=== PATIENT | female | born 1940 | race Caucasian/White ===

== ENCOUNTER → 2021-12-30 11:26 | Outpatient (CLI) | payer OTHER, MEDICARE, SELFPAY ==
[2021-12-30 13:56] LABS: COVID19 -Nasal RAPID Negative (Negative)
== END ==
PROVIDERS: PCP Family Medicine; Referring Provider Ophthalmology; Visit Provider Ophthalmology
DX: Z20.822 Contact with and (suspected) exposure to COVID-19 (principal)
CPT/HCPCS: 87635; C9803

== ENCOUNTER 2022-01-01 06:17 | Day surgery (SDC) | payer OTHER, MEDICARE, SELFPAY ==
--- NOTE | 2021-12-30 17:48 | PM.PREOP ---
Pre-operative Note COVID-19 COVID-19 status: Negative Criteria for continued procedure: Expected advancement of disease process, Possibility delay results in more complex future surgery or treatment, Increased loss of function and Non-surgical alternatives not available or appropriate per current SOC Interval Note History & Physical reviewed/Exam performed by Physician: Yes Changes to H&P: No H&P completed within 30 days and has changed as indicated here:: Fasting blood [id number] is 142.
--- NOTE | 2021-12-30 17:50 | P.HP_ITS ---
History of Present Illness History of Present Illness Date Patient Seen: 12/24/21 Time Patient Seen: 10:00 Date of Onset of Symptoms: 12/13/18 Chief complaint: Blepharoplasty Upper Eye/Repair Ectropian Bleph Narrative: Patient presented with increasing complaints of several years of having to lift her eyelids in order to see. She is getting and headache and brow lift and is having trouble driving due to her overhanging eyelid. She also has tearing and watering doing to the lower lid laxity. She wants functional surgery for both her upper and lower lids Patient History Comment: Patient has controlled diabetes mellitus without retinopathy chronic myeloid leukemia in remission hypertension and high cholesterol. She has had an appendectomy and a cholecystectomy. She has had bilateral cataract surgery and posterior capsulotomy is Family & Social History Family history unavailable: Yes Social History: Nonsmoker no anesthesia related events Safety & Behavioral: Does not have sleep apnea drinks a glass of wine daily no alcohol pleural no recreational drug use Tobacco & Substance use: Never smoker Comment: Takes daily generic Gleevec for her chronic myelogenous leukemia and is stable has hypertension Review of Systems Review of Systems ROS: Yes All systems reviewed with the patient and are negative except as otherwise documented Constitutional Constitutional: Reports system reviewed and no additional complaints, except as documented Eyes Eyes: Reports loss of peripheral vision Comments: Has overhanging eyelids blocking vision and loose lower lids causing exposure and irritation she is here for surgery. ENT Ears, Nose, Mouth, and Throat: Yes system reviewed and no additional complaints, except as documented Cardiovascular Comments: High blood pressure Respiratory Respiratory: Reports system reviewed and no additional complaints, except as documented Gastrointestinal Gastrointestinal: Reports system reviewed and no additional complaints, except as documented Genitourinary Genitourinary: Reports system reviewed and no additional complaints, except as documented Musculoskeletal Musculoskeletal: Reports system reviewed and no additional complaints, except as documented Integumentary/Breasts Skin/Breast: Reports system reviewed and no additional complaints, except as documented Neurologic Neurologic: Reports system reviewed and no additional complaints, except as documented Psychiatric Psychiatric: Reports system reviewed and no additional complaints, except as documented Endocrine Endocrine: Reports system reviewed and no additional complaints, except as documented Comments: Diabetic Hematologic/Lymphatic Hematologic/Lymphatic: Reports system reviewed and no additional complaints, except as documented Comments: Chronic myelogenous leukemia in remission Allergic/Immunologic Allergic/Immunologic: Reports system reviewed and no additional complaints, except as documented Exam Narrative Exam Narrative: Patient had complete examination of the eyes showing vision at without correction 2200 right eye with correction 2019 left eye is 20 30 without c orrection 2019 with she has had bilateral cataract surgeries with a posterior capsulotomy was she has no diabetic retinopathy her cup-to-disc is 0.3 in both eyes under intra-ocular pressure is normal she has brow ptosis bilaterally 3+ dermatochalasis and bilateral ectropion is her lungs are clear and her heart has a regular rhythm Const General: cooperative, healthy appearing and well developed Nutritional Appearance: average body habitus Orientation: alert, awake and oriented x3 HENMT Head: normal to inspection Ears: hearing grossly normal bilaterally Nose: external nose normal Face and sinus: normal facial exam Mouth: oral mucosae normal Teeth and gingiva: dentition normal Throat: tonsils normal Eyes Visual White: abnormal by confrontation Alignment and Position: alignment abnormal Periorbital: periorbital findings normal Eyelids: eyelid abnormality Conjunctivae: conjunctivae normal Sclera: sclerae normal Cornea: corneas normal Pupils: PERRL EOM: EOM intact bilaterally Direct ophthalmoscopy: normal light reflex, no papilledema and fundi normal bilaterally Neck Neck: normal visual inspection Thyroid: thyroid normal Carotids: normal carotid upstroke Chest Chest: normal inspection of the chest Resp Effort & Inspection: normal respiratory effort Cardio Rate: regular rate Neuro Cranial Nerves: CN's II-XI intact bilaterally, sense of smell intact, accommodation normal, EOM intact bilaterally and facial strength normal Cognition: normal cognition Speech: speech normal Gait: normal gait Motor: muscle tone normal throughout Sensory Exam: no sensory deficits noted Objective ECG Impression: Patient is a candidate for bilateral functional upper lid blepharoplasty and bilateral ectropion repair Assessment & Plan Time Spent With Patient Critical Care time: I spent a total of [] minutes of critical care time on this patient's care today; this time is exclusive of procedural time.
--- NOTE | 2021-12-30 18:07 | P.OP_ITS ---
Operative Date/Time/Diagnoses Date of procedure: 01/01/22 Time of procedure: 07:45 Pre-op diagnosis: Bilateral upper lid dermatochalasis. Bilateral lower lid ectropion Procedure & Clinicians Procedure: Preoperative diagnoses: 1. Bilateral upper lid dermatochalasis 2. Bilateral lower lid ectropion 3. Chronic myelogenous leukemia in remission 4. Hypertension 5. Diabetes without retinopathy 6. Benign growth right lower Postoperative diagnoses: 1. Bilateral upper lid dermatochalasis treated with blepharoplasty 2. Status post ectropion repair 3. Punctal malrotation with punctal stenosis. 4. Removal of papilloma right lower lid Procedure: Bilateral upper blepharoplasty for functional symptoms. Bilateral lower lid functional ectropion repair. Surgeon: Elizabeth Gomez MD Complications: none Specimen: None Blood loss: Less than 3 mL Anesthesia: Local infiltration with monitored standby. Indications: Bilateral upper lids obstructing superior vision. Preoperative external photographs taken and loss of vision to within 2 mm of marginal light reflex. Functional surgery. Bilateral lower lid laxity with exposure symptoms and malrotated puncta. Patient presents with excessive irritation and tearing from exposure due to bilateral lower lid laxity malposition the of the lacrimal puncta which were also closed. The patient has failed conservative measures including lubrication and antibiotic ointment and desires surgery to improve these symptoms. Procedure: In the preoperative holding area the amount skin and subcutaneous tissue to be removed was marked with indelible ink. The contours were carefully checked for symmetry and planned procedure discussed with the patient. The patient was taken to the operating room. IV sedation was given. Proparacaine drops were placed in both eyes for comfort. Local infiltration of anesthetic 2.5 cc into each upper lid and lateral canthus bilaterally, consisting of 1% xylocaine with epinephrine, normal saline and 1 cc hyluronidase was placed. This was then supplemented with full strength 2% xylocaine with epinephrine, 0.5% bupivacaine, and 1 cc hyalurondase. The face was prepped in an open manner. Attention was placed to the right lower lid. A papilloma in the lid margin was removed with Reed tenotomy scissors and cautery cautery. Attention was then placed to the right upper lid upper lid. Using the previous kitchen a number 15. [employer] blade was used to incise a skin muscle flap. The flap was lifted and removed. Cautery was applied as needed. Contouring of the muscle belly was also performed. Exploration of the nasal and preoperneurotic fat pads were performed removal and contouring with hemostat and scissors as well as cautery were performed. The lid was then closed with running and interrupted 6 0 Vicryl sutures after the lower lid lateral canthotomy was closed.. Attention was placed to the right lower lid. A punctal dilator was used to enlarge the punctum. It was then probed to the nose. Tenotomy scissors were used to make a 3 snip procedure to enlarge the punctum permanently. Attention was placed to the lateral canthus. A 15. [employer] blade was used to make an incision for 1 cm. The periosteum was exposed. Cautery was used as needed. The inferior canthal tendon was lysed with scissors. A tarsal strip was formed with clearance of the anterior and posterior lamella and any exposed lashes. Minimal shortening was performed. The strip was then transected with 5.0 Mersilene type suture which was placed double-armed through the periosteum and tied with multiple knots at the orbital rim. The outer tarsus and lid was then closed with 6 0 interrupted sutures. The procedure was repeated on the left side in identical fashion. There was minimal bleeding. The patient returned to the recovery room in good condition. Sutures will be removed in the office in approximately 10 days. Same procedure was repeated for the left upper lid and lower lid. The Betadine was removed. Maxitrol ointment was placed to suture line. She returned to recovery room in stable condition. Instructions for postoperative cold packs were reviewed. Elizabeth Gomez MD. Same procedure as scheduled: Yes Post-operative Plan for aftercare: Cold compresses with either ice bath or frozen peas with clot under will be done frequently to both upper eyelids over the next 3 days. Ointment will be placed into the eye at night and into the lashes. She will be seen in the office in 9 days for tomorrow if needed.
[2022-01-01 07:07] VITALS: BMI 25.4
[2022-01-01 07:33] VITALS: BP 157/70; PULSE 65; RESP 16; TEMP 36.2; O2SAT 94; BMI 25.4
[2022-01-01] MEDS: LACTATED RINGERS 1,000 ML 42 ML IV (07:45)
[2022-01-01] MEDS: PROPARACAINE 0.5% OPHTH SOL 2 DROPS EYE-BOTH (08:00)
[2022-01-01] MEDS: LIDOCAINE 2% W/EPI 3 ML, BUPIVACAINE 0.5% (PF) 2 ML, HYALURONIDASE 150 UNIT INJ (08:05)
--- NOTE | 2022-01-01 08:20 | SUR.OPER ---
Supine on eye stretcher, head on extension cradle. Arms tucked at sides. Pillow under knees.
[2022-01-01] MEDS: NEOMYCIN/POLY/DEX OPHTH OINT 1 APPLIC EYE-BOTH (10:00)
[2022-01-01 10:06] VITALS: BP 153/68; PULSE 72; RESP 12; TEMP 36.2; O2SAT 97
--- NOTE | 2022-01-01 10:15 | SUR.PHASEII ---
Patient arrived from OR by stretcher. VS stable. Report received.
[2022-01-01 10:17] VITALS: BP 144/63; PULSE 68; RESP 12; TEMP 36.9; O2SAT 94
== END 2022-01-01 10:29 | disposition home or self-care (01) ==
PROVIDERS: PCP Family Medicine; Referring Provider Ophthalmology; Visit Provider Ophthalmology
PROC: (CPT 67917; principal; 2022-01-01 07:45)
PROC: (CPT 67917; 2022-01-01 07:45)
PROC: 0HB1XZZ Excision of Face Skin, External Approach (ICD-10-PCS; CPT 67917; 2022-01-01 07:45)
DX: H02.834 Dermatochalasis of left upper eyelid (principal); H02.831 Dermatochalasis of right upper eyelid; H02.132 Senile ectropion of right lower eyelid; H02.135 Senile ectropion of left lower eyelid; D23.112 Other benign neoplasm of skin of right lower eyelid, including canthus; I10 Essential (primary) hypertension; E11.9 Type 2 diabetes mellitus without complications
CPT/HCPCS: 67917; 15823; 11200; 00103; J2250; J2704; J3010; J3470